=== PATIENT | male | born 1955 | race Caucasian/White ===

== ENCOUNTER → 2020-05-29 | Outpatient (CLI) | payer OTHER ==
[2020-05-29 13:35] VITALS: BP 127/84; PULSE 90; RESP 18; TEMP 98.1
--- NOTE | 2020-05-30 20:25 | P.PAINCN ---
History of Present Illness - Reason for Consult Consult date: 05/30/20 - History of Present Illness This is an initial consultation visit for this 64 years old male with a chronic history of severe neck pain and low back pain, he reported that he had multiple lumbar laminectomy and fusion surgery in his lumbar area, and he had anterior cervical decompression and fusion, and he had posterior cervical fusion, currently most of the pain is in the neck area, it is constant and increases with any activity, with occasional radiation to the upper extremities bilaterally, intensity of the pain increases with any activity, and he is currently on multiple pain medication and he is not getting the correct relief, he denies any fever or night sweats. Denies any change in the bowel movement or urination and there is no motor or sensory deficit, his activity of daily livings is limited secondary to the intensity of the pain, he tried physical therapy without any benefit Past Medical History Additional Past Medical History / Comment(s): DEGENERATIVE DISC DISEASE. CHRONIC NECK AND BACK PAIN. History of Any Multi-Drug Resistant Organisms: None Reported Past Surgical History: Adenoidectomy, Back Surgery Additional Past Surgical History / Comment(s): 3 X LUMBAR BACK SURGERIES-FUSIONS WITH CADAVER. 3 X CERVICAL NECK SURGERIES- ANTERIOR AND POSTERIOR FUSIONS WITH CADAVER AND HARDWARE AND SCREWS. Past Anesthesia/Blood Transfusion Reactions: No Reported Reaction Smoking Status: Current every day smoker Medications and Allergies Home Medications Medication Instructions Recorded Confirmed Type Baclofen [Lioresal] 20 mg PO DAILY 05/29/20 05/29/20 History Cholecalciferol [Vitamin D3 (25 4,000 unit PO DAILY 05/29/20 05/29/20 History Mcg = 1000 Iu)] Gabapentin 300 mg PO BID 05/29/20 05/29/20 History Ibuprofen 800 mg PO BID 05/29/20 05/29/20 History Magnesium 1 tab PO BID 05/29/20 05/29/20 History Morphine Sulfate ER [Ms Contin] 30 mg PO BID 05/29/20 05/29/20 History clonazePAM [KlonoPIN] 0.25 mg PO DAILY PRN 05/29/20 05/29/20 History hydrOXYzine pamoate [hydrOXYzine 25 mg PO QID 05/29/20 05/29/20 History PAMOATE] oxyCODONE-APAP 10-325MG [Percocet 1 tab PO Q4H 05/29/20 05/29/20 History 10-325 mg] Allergies Allergy/AdvReac Type Severity Reaction Status Date / Time phenytoin [From Dilantin] Allergy Severe Itching Verified 05/29/20 12:57 shellfish derived [Shellfish] Allergy Intermediate Itching Verified 05/29/20 12:57 Physical Exam Physical Examinations : -Constitutiona : Cooperative , not in acute distress . -HEENT : nech : supple , no Lymphadenopathy , normal thyroid size . : eyes : no ptosis , no icterus, no photophobia . - neurologic : Cranial nerve II to XII intact , no focal neurological deffecit . -psychatric : alert , oriented X 3 , appropriate affect , intact judgment and insight . -Lymphatic : no Lymphadenopathy . - musculoskeltal : Cervical Spine motor stregnth in the deltoid and biceps, normal right side , normal Left side motor stregnth biceps and the wrist extensors normal right side ,normal left side . motor stregnth in the triceps muscle . normal Right side , normal Left side deep tendon reflexes normal at the biceps , normal at Brachioradialis , normal at triceps. cervical facet loading test= Positive Bilaterally Spurling test= positive bilaterally. Neck distraction test= positive bilaterally. Dory sign= positive bilaterally. Lumber spine moter stegnth lower extremities ,thigh and legs 5/5 Right side , 5/5 Left side deep tendon reflexes : normal Knee Jerk , normal ankle Jerk lumber facet Loading Test =positive Right , positive Left Range of motion of the lumbar spine Flexion 30 degrees, extension 10 degrees strait leg raising test = positive at 30 degree Fabere test= positive Right , and positive LT . Sever tenderness over the Sacroiliac joint on the Right , and Left sides Gaenslen test= positive right ,and positive left . Seated flexion test= positive right ,and positive Left . 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 2-cervical degenerative disc disease. 3-cervical spondylosis with cervical facet arthropathy without myelopathy. 4-failed back surgery syndrome lumbar area. Patient reported that most of the pain is cur rently in the cervical area for this reason we cannot focus our treatment on the cervical spine Patient is not a candidate for cervical epidural steroid injection, he goes he had posterior cervical fusion, the only option available to help his neck pain, is the targeted the facetogenic component of the neck pain by doing diagnostic medial branch block cervical area C2, C3, C4, C5 x2 and is status post of then will proceed with RFA. Also patient could benefit from increasing Neurontin dose to 300 mg 3 times a day. Patient should continue his current medication as prescribed by his primary care Time with Patient: Greater than 30 PQRS Measure Charge Sheet Measure #130: Documentation of Current Meds in Medical Chart: Patient's medications documented in chart Measure #226: Tobacco Use: Screen & Cessation Intervention: Pt screened for tobacco use AND intervention given Measure #111: Pneumonia Vaccination: Pneumococcal vaccine administered or previously received Measure #47: Advance Care Plan: Advance care planning discussed & documented, pt chose/unable to give Measure #412: Opioid Treatment Agreement: No documentation of signed opioid treatment agreement Measure #408: Opioid Therapy Follow-up Evaluation: Patient had NO f/u eval minimum every 3 months during opioid therapy Measure #317: Preventitive Care & Scrn High Bld Press & F/U: Normal blood pressure, f/u not required Measure #128: Body Mass Index (BMI) Screening & Follow-up: BMI documented ABOVE normal parameters - f/u documented Measure #131: Pain Assessment & Follow-up: Pain positive & plan documented, Fol low-up scheduled Measure #431: Unhealthy Alcohol Use Preventative Care & Scrn: Patient not identified as an unhealthy alcohol user PQRS Narrative: Blood Pressure 127/84 Pain Intensity [Posterior Neck 6 ] Scale Used Numeric (1 - 10) Hx Alcohol Use (MH) Yes: OCCASIONAL- 2-3 BEERS ON WEEKENDS Home Medications: Ambulatory Orders Baclofen [Lioresal] 20 mg PO DAILY 05/29/20 Cholecalciferol [Vitamin D3 (25 Mcg = 1000 Iu)] 4,000 unit PO DAILY 05/29/20 Gabapentin 300 mg PO BID 05/29/20 Ibuprofen 800 mg PO BID 05/29/20 Magnesium 1 tab PO BID 05/29/20 Morphine Sulfate ER [Ms Contin] 30 mg PO BID 05/29/20 clonazePAM [KlonoPIN] 0.25 mg PO DAILY PRN 05/29/20 hydrOXYzine pamoate [hydrOXYzine PAMOATE] 25 mg PO QID 05/29/20 oxyCODONE-APAP 10-325MG [Percocet 10-325 mg] 1 tab PO Q4H 05/29/20
== END | disposition home or self-care (01) ==
LOC: PNWHC3 12:46
PROVIDERS: ATTEND Specialist
DX: M96.1 Postlaminectomy syndrome, not elsewhere classified (principal); M47.812 Spondylosis without myelopathy or radiculopathy, cervical region; M50.30 Other cervical disc degeneration, unspecified cervical region; M46.96 Unspecified inflammatory spondylopathy, lumbar region; Z79.891 Long term (current) use of opiate analgesic; Z79.899 Other long term (current) drug therapy; Z91.013 Allergy to seafood; Z88.5 Allergy status to narcotic agent
CPT/HCPCS: 99211